=== PATIENT | male | born 1970 | race Caucasian/White ===

== ENCOUNTER 2017-10-15 21:10 | Emergency (ER) | payer OTHER ==
[2017-10-15 21:30] VITALS: BP 108/65; PULSE 85; TEMP 98.4; BMI 44.6
--- NOTE | 2017-10-15 21:32 | PDOC ---
Rapid Medical Evaluation Time Seen by Provider: 10/15/17 21:27 Medical Evaluation: 10/15/17 21:28 The patient presents with a chief complaint of: R leg pain after falling off of ladder. Slipped and fell from approximately 4 feet. Admits to hitting head. denies LOC. Now complaining of dizziness. Also states that he cannot bend his R leg without pain. Noticed swelling to the back. Took Tylenol 650 an hour ago. I have performed a brief in-person evaluation of this patient; Pertinent physical exam findings: ambulatory, in no respiratory distress. Swelling to posterior R leg; pain with flexion and extension I have ordered the following: CT head, femur/pelvis x-ray The patient will proceed to the ED for further evaluation. Discharge Disposition - Referrals Referrals: Bladimir Joyner MD [Primary Care Provider] - - Patient Instructions - Post Discharge Activity
[2017-10-15] MEDS ORDERED: KETOROLAC TROMETHAMINE 30 MG/1 ML VIAL IM ONE (23:05)
--- NOTE | 2017-10-15 23:28 | PDOC ---
History of Present Illness - General History Source: Patient Exam Limitations: No Limitations <Enrrique Fernando - Last Filed: 10/15/17 23:37> - General History Source: Patient Exam Limitations: No Limitations - History of Present Illness Initial Comments: 10/15/17 23:30 The patient is a 47 year old male, with a significant past medical history prostate inflammation is brought to the emergency department accompanied by his , s/p mechanical fall earlier this evening. The patient reports he was on a 4 ft ladder, when he lost his balance, fell back and tried to avoid landing on his back by using his right leg for support. Patient reports he was unsuccessful , leading to him landing on his back and injuring his right lower extremity. Patient reports associated lower back pain and right leg pain, worse with movement. The patient report taking two Tylenol and rubbing Bengay before coming to the ER, with minimal relief of symptoms. Patient endorses hitting his head and dizziness, but denies any LOC, changes in vision, headache, numbness, tingling, or neck pain. The patient reports right shoulder and finger pains, but states he is able to actively move them. He denies any other trauma. He denies any chest pain, shortness of breath, diaphoresis, palpitations, or lower extremity edema. Allergies: NKDA Past Surgical History: None reported Social History: Non smoker. No ETOH or recreational drug use. <Karen Fraire - Last Filed: 10/16/17 00:31> - General Chief Complaint: Injury Stated Complaint: FALL JOB INJURY Time Seen by Provider: 10/15/17 21:27 Past History - Suicide/Smoking/Psychosocial Hx Smoking History: Never smoked Have you smoked in the past 12 months: No Information on smoking cessation initiated: No Hx Alcohol Use: No Drug/Substance Use Hx: No <Enrrique Fernando - Last Filed: 10/15/17 23:37> <Karen Fraire - Last Filed: 10/16/17 00:31> - Past Medical History Allergies/Adverse Reactions: Allergies Allergy/AdvReac Type Severity Reaction Status Date / Time No Known Allergies Allergy Verified 10/15/17 21:30 Home Medications: Ambulatory Orders Allopurinol [Zyloprim -] 100 mg PO DAILY 10/15/17 Naproxen 500 mg PO BID PRN #20 tablet 10/15/17 Tamsulosin HCl [Flomax] 0.4 mg PO DAILY 10/15/17 Review of Systems - Review of Systems Able to Perform ROS?: Yes Comments:: 10/15/17 23:29 GENERAL/CONSTITUTIONAL: No fever or chills. No weakness. HEAD, EYES, EARS, NOSE AND THROAT: No change in vision. No ear pain or discharge. No sore throat. CARDIOVASCULAR: No chest pain or shortness of breath. RESPIRATORY: No cough, wheezing, or hemoptysis. GASTROINTESTINAL: No nausea, vomiting, diarrhea or constipation. GENITOURINARY: No dysuria, frequency, or change in urination. MUSCULOSKELETAL: +Lower back pain, +right leg pain. No neck pain. SKIN: No rash NEUROLOGIC: +Dizziness. No headache, loss of consciousness, or change in strength/sensation. ENDOCRINE: No increased thirst. No abnormal weight change. HEMATOLOGIC/LYMPHATIC: No anemia, easy bleeding, or history of blood clots. ALLERGIC/IMMUNOLOGIC: No hives or skin allergy. <Karen Fraire - Last Filed: 10/16/17 00:31> *Physical Exam - Vital Signs Last Vital Signs Temp Pulse Resp BP Pulse Ox 98.4 F 85 18 108/65 100 10/15/17 21:24 10/15/17 21:24 10/15/17 21:24 10/15/17 21:24 10/15/17 21:24 <Enrrique Fernando - Last Filed: 10/15/17 23:37> - Vital Signs Last Vital Signs Temp Pulse Resp BP Pulse Ox 98.4 F 85 18 108/65 100 10/15/17 21:24 10/15/17 21:24 10/15/17 21:24 10/15/17 21:24 10/15/17 21:24 - Physical Exam Comments: 10/15/17 23:30 GENERAL: Awake, alert, and fully oriented, in no acute distress HEAD: No signs of trauma EYES: PERRLA, EOMI, sclera anicteric, conjunctiva clear ENT: Auricles normal inspection, hearing grossly normal, nares patent, oropharynx clear without exudates. Moist mucosa NECK: Normal ROM, supple, no lymphadenopathy, JVD, or masses LUNGS: Breath sounds equal, clear to auscultation bilaterally. No wheezes, and no crackles HEART: Regular rate and rhythm, normal S1 and S2, no murmurs, rubs or gallops ABDOMEN: Soft, nontender, normoactive bowel sounds. No guarding, no rebound. No masses BACK: No cervical spine tenderness. No midline tenderness. EXTREMITIES: +Right proximal lateral thigh tenderness, but able to flex and extend the lateral hip. Full range of motion to the right shoulder, but no tenderness. Normal range of motion, no edema at the remainder of the extremities. No clubbing or cyanosis. No cords, erythema. VASCULAR: 2+ radial pulses. NEUROLOGICAL: Cranial nerves II through XII grossly intact. Normal speech. Sensation intact SKIN: Warm, Dry, normal turgor, no rashes or lesions noted. <Karen Fraire - Last Filed: 10/16/17 00:31> ED Treatment Course - RADIOLOGY Radiograph Interpretation: 10/16/17 00:30 EXAM: Head CT INTERPRETED BY: Dr. Caicedo REVIEWED BY: Dr. Fernando IMPRESSION: No acute intracranial hemorrhage, mass effect, hydrocephalus or calvarial fracture. EXAM: Right femur/hip XR INTERPRETED BY: Dr. Caicedo REVIEWED BY: Dr. Fernando IMPRESSION: There is a linear ossific fragment versus calcification just lateral to the base of the right greater trochanter, only seen on the AP view of the right hip, which could be an avulsion fracture or calcification within the gluteus tendon. Alignment is anatomic. Osseous mineralization is within normal. There is ossification along the course of bilateral iliolumbar ligaments. There is an. A 3 along bilateral iliac crests, bilateral anterior, superior iliac spines and at the insertions of the quadriceps and infrapatellar tendons. SUMMARY:Right greater trochanter avulsion fracture versus calcific tendinopathy of the right gluteus tendons. Please correlate clinically. <Karen Fraire - Last Filed: 10/16/17 00:31> Medical Decision Making - Medical Decision Making 10/15/17 23:22 A portion of this note was documented by scribe services under my direction. I have reviewed the details of the note, within reason, and agree with the documentation with the following case summary and management plan written by me. Patient treated in the ED. Nursing notes are reviewed and incorporated into the medical decision-making. Vital signs reviewed. Peripheral IV access obtained by the nurse, laboratory studies are drawn and sent, reviewed and interpreted by myself. Vital Signs Temp Pulse Resp BP Pulse Ox 98.4 F 85 18 108/65 100 10/15/17 21:24 10/15/17 21:24 10/15/17 21:24 10/15/17 21:24 10/15/17 21:24 47-year-old male with no past medical history presents with fall. The patient was in his home and up for stairs when he slipped and fell. Landed on his back complain by right proximal lateral thigh pain. He reports hitting his head but denies loss of consciousness. Reports feeling "days "but otherwise without other symptoms. Patient was given a discussion regards to risk factors for concussions. CAT scan head demonstrates no acute findings. No acute intracranial hemorrhage, mass effect or skull fractures. Radiographs of the right femur and hip demonstrates a right greater trochanter evaluation fracture versus calcific tendinopathy the right gluteus tendons. We'll consult ortho, give pain medications. Reassess. 10/15/17 23:37 Case discusse doretha Maher. he agrees with weight bearing and follow up as an outpatient. Pt is with and agrees with plan. I discussed the physical exam findings, ancillary test results and final diagnoses with the patient. I answered all of the patient's questions. The patient was satisfied with the care received and felt comfortable with the discharge plan and treatment plan. The patient will call their primary care physician within 24 hours to arrange follow-up and will return to the Emergency Department with any new, persistant or worsening symptoms. <Enrrique Fernando - Last Filed: 10/15/17 23:37> - Medical Decision Making 10/15/17 23:29 First call placed to Dr. Maher at 23:29. Awaiting call back. <Karen Fraire - Last Filed: 10/16/17 00:31> *DC/Admit/Observation/Transfer - Discharge Dispostion Admit: No <Enrrique Fernando - Last Filed: 10/15/17 23:37> - Attestations Scribe Attestion: 10/15/17 23:30 Documentation prepared by Karen Fraire, acting as medical practitioners for Enrrique Fernando MD. <Karen Fraire - Last Filed: 03/31/18 00:31> Diagnosis at time of Disposition: Fall Qualifiers: Encounter type: initial encounter Qualified Code(s): W19.XXXA - Unspecified fall, initial encounter Avulsion fracture of trochanter of right femur Qualifiers: Encounter type: initial encounter Fracture type: closed Qualified Code(s): S72.101A - Unspecified trochanteric fracture of right femur, initial encounter for closed fracture - Discharge Dispostion Disposition: HOME Condition at time of disposition: Improved - Prescriptions Prescriptions: Naproxen 500 mg PO BID PRN #20 tablet PRN Reason: Pain - Referrals Referrals: Bladimir Joyner MD [Primary Care Provider] - - Patient Instructions Printed Discharge Instructions: DI for Leg Pain Additional Instructions: Your head ct is unremarkable. Your leg radiograph shows a possible small right avulsion fracture of the greater trochanter. Please call the orthopedist on Wednesday and follow up. For pain control, take 500 mg naproxen every 12 hours as needed for pain. - Post Discharge Activity
[2017-10-16] MEDS ORDERED: KETOROLAC TROMETHAMINE 30 MG/1 ML VIAL ONE
== END 2017-10-16 00:10 | disposition home or self-care (01) ==
LOC: JERFT 21:10 → JER 21:10
PROC: 3E0233Z Introduction of Anti-inflammatory into Muscle, Percutaneous Approach (ICD-10-PCS; principal; 2017-10-15)
DX: S72.101A Unspecified trochanteric fracture of right femur, initial encounter for closed fracture (principal); W11.XXXA Fall on and from ladder, initial encounter; Y93.H3 Activity, building and construction; Y92.69 Other specified industrial and construction area as the place of occurrence of the external cause; Y99.0 Civilian activity done for income or pay
CPT/HCPCS: 70450-TC; 73502-TC-RT; 73552-TC-RT-FY; 96372; 99282-25

== ENCOUNTER 2019-04-17 09:11 | Emergency (ER) | payer OTHER ==
[2019-04-17 09:21] VITALS: BP 121/70; PULSE 77; TEMP 97.6; BMI 42.9
--- NOTE | 2019-04-17 09:32 | PDOC ---
History of Present Illness - General Chief Complaint: Back Pain Stated Complaint: NATALIIA NUMBNESS IN THE HANDS Time Seen by Provider: 04/17/19 09:32 History Source: Patient Exam Limitations: No Limitations - History of Present Illness Initial Comments: Pt is a 48 yo M, with PMH of BPH, who is presenting with complaints of b/l hand "numbness" down the radial side of his arms x3 days. Pt states the sensation woke him up from sleep, and that it is b/l, but worse in his left (dominant hand ). 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 Pt has never had this issue in the past. Pt denies any recent fevers/chills, headache, vision changes , syncope, chest pain, palpitations, SOB, nausea/vomiting, abdominal pain, incontinence of urine or stool, urinary symptoms, extremity pain, diarrhea/ constipation, or leg swelling. Allergies: NKDA PCP: Dr. Bladimir Joyner -- pt had labs down within 1 month and "everything was normal". Social: Pt denies any cigarette, alcohol, or drug use. Pt denies any recent travel or sick contacts. Surgical: no relevant history. Family: extensive history of DM in family. 04/17/19 12:22 Past History - Travel Traveled outside of the country in the last 30 days: No Close contact w/someone who was outside of country & ill: No - Past Medical History Allergies/Adverse Reactions: Allergies Allergy/AdvReac Type Severity Reaction Status Date / Time No Known Allergies Allergy Verified 04/17/19 09:21 Home Medications: Ambulatory Orders Allopurinol [Zyloprim -] 100 mg PO DAILY 10/15/17 Alfuzosin HCl [Alfuzosin HCl ER] 10 mg PO DAILY 04/17/19 Ibuprofen 800 mg PO BID #14 tablet 04/17/19 COPD: No - Immunization History Immunization Up to Date: Yes - Psycho Social/Smoking Cessation Hx Smoking History: Never smoked Have you smoked in the past 12 months: No Information on smoking cessation initiated: No Hx Alcohol Use: No Drug/Substance Use Hx: No Review of Systems - Review of Systems Able to Perform ROS?: Yes Is the patient limited Bangladeshi proficient: No Constitutional: Yes: Weight Stable. No: Chills, Diaphoresis, Fever, Loss of Appetite, Malaise, Weakness HEENTM: No: Recent change in vision, Nose Congestion, Throat Pain, Throat Swelling, Difficulty Swallowing Respiratory: No: Cough, Orthopnea, Shortness of Breath Cardiac (ROS): No: Chest Pain, Edema, Irregular Heart Rate, Lightheadedness, Palpitations, Syncope, Chest Tightness ABD/GI: No: Constipated, Diarrhea, Nausea, Poor Appetite, Poor Fluid Intake, Vomiting : No: Burning, Dysuria, Flank Pain, Incontinence, Pain, Urgency Musculoskeletal: No: Back Pain, Joint Pain, Joint Swelling, Muscle Pain, Muscle Weakness, Neck Pain, Joint Stiffness Integumentary: No: Erythema, Rash Neurological: Yes: See HPI, Numbness, Paresthesia, Tingling. No: Headache, Pre- Existing Deficit, Weakness, Unsteady Gait, Ataxia, Dizziness Psychiatric: No: Sleep Pattern Change, Change in Appetite Endocrine: No: Increased Urine, Change in Weight Hematologic/Lymphatic: No: Anemia, Blood Clots, Easy Bleeding, Easy Bruising All Other Systems: Reviewed and Negative *Physical Exam - Vital Signs Last Vital Signs Temp Pulse Resp BP Pulse Ox 97.6 F 77 18 121/70 96 04/17/19 09:17 04/17/19 09:17 04/17/19 09:17 04/17/19 09:17 04/17/19 09:17 - Physical Exam Comments: Vitals stable, pt afebrile. Pt in NAD, morbidly obese body habitus. Pt alert and oriented x3. service line coordinator generally intact, muscular strength and sensation intact in all extremities. Intact triceps and biceps reflexes b/l. Reflex exam reproduced the tingling sensation in the hands. No midline spinal tenderness, step-offs, or crepitus. Head normocephalic, atraumatic. Eyes PERRLA, EOMI. Oropharynx without erythema or exudates, no LAD b/l. No nasal congestion. Hearing intact. Clear heart sounds, S1/S2, no JVD, b/l pedal edema, or heart murmur. Clear lung sounds, no respiratory distress, wheezes, crackles, or accessory muscle use. No abdominal or CVA tenderness to palpation, no rebound, no guarding. Abdomen soft, non-distended, and with normoactive bowel sounds. Skin without jaundice or rash. 04/17/19 12:26 ED Treatment Course - LABORATORY CBC & Chemistry Diagram: 04/17/19 10:20 Medical Decision Making - Medical Decision Making Pt was seen at bedside, also will be seen by attending Dr. Zuñiga. Pt presenting with b/l hand numbness/tingling, likely from over-use. Sensation was reproduced with reflex examination. No FNDs noted on exam, no warning signs (no weakness, incontinence, fevers/chills) to suggest need for CT to evaluate for compression. Will evaluate with labs to check electrolytes, cardiac profile, and ECG. Will get fingerstick BGM (pt was fasting) to evaluate for DM. Pt declined pain control at this time. Will continue to reassess pt and monitor for symptomatic improvement. ECG: NSR, intervals WNL (HR 64, WA 152, QRS 86, QTc 425). No TWIs or significant ST segment changes. No prior ECG for comparison. 04/17/19 12:27 CMP WNL BGM in 80s Trop <.02 with no EKG changes Pt can be discharged to home with PCP f/u. Provided 800 mg PO ibuprofen to pts pharmacy for anti-inflammatory effect. Likely over-use injury. Provided work- note and referral to orthopedics. Strict return precautions provided, including for compression symptoms. 04/17/19 12:32 Discharge - Discharge Information Problems reviewed: Yes Clinical Impression/Diagnosis: Numbness and tingling in both hands Condition: Good Disposition: HOME - Admission No - Additional Discharge Information Prescriptions: Ibuprofen 800 mg PO BID #14 tablet - Follow up/Referral Referrals: Bladimir Joyner MD [Primary Care Provider] - Gabe Higginbotham DO [Staff Physician] - - Patient Discharge Instructions Patient Printed Discharge Instructions: DI for Cervical Radiculopathy, DI for Numbness/tingling Additional Instructions: You were seen in the ER today for numbness in your hands and arms. The results of your labs today were normal. Please follow-up with your primary care doctor and orthopedics within 1-2 days to discuss your visit and make sure your symptoms have improved. Please return to the ER if you have any worsening pain, development of fevers or chills, loss of consciousness, weakness in your extremities, incontinence of urine or stool, inability to tolerate food or fluids, or any other concerns. I have sent medications to your pharmacy. Please take these medications as prescribed. You can use ice or warm compress at home for pain in your neck or shoulders. Please attempt to refrain from heavy lifting or straining at work until you are feeling better. - Post Discharge Activity Work/Back to School Note: Back to Work
--- NOTE | 2019-04-17 10:38 | PDOC ---
History of Present Illness - General Chief Complaint: Back Pain Stated Complaint: NATALIIA NUMBNESS IN THE HANDS Time Seen by Provider: 04/17/19 09:32 Past History - Past Medical History Allergies/Adverse Reactions: Allergies Allergy/AdvReac Type Severity Reaction Status Date / Time No Known Allergies Allergy Verified 04/17/19 09:21 Home Medications: Ambulatory Orders Allopurinol [Zyloprim -] 100 mg PO DAILY 10/15/17 Alfuzosin HCl [Alfuzosin HCl ER] 10 mg PO DAILY 04/17/19 COPD: No - Immunization History Immunization Up to Date: Yes - Psycho Social/Smoking Cessation Hx Smoking History: Never smoked Have you smoked in the past 12 months: No Information on smoking cessation initiated: No Hx Alcohol Use: No Drug/Substance Use Hx: No *Physical Exam - Vital Signs Last Vital Signs Temp Pulse Resp BP Pulse Ox 97.6 F 77 18 121/70 96 04/17/19 09:17 04/17/19 09:17 04/17/19 09:17 04/17/19 09:17 04/17/19 09:17 ED Treatment Course - LABORATORY CBC & Chemistry Diagram: 04/17/19 10:20 - ADDITIONAL ORDERS Additional order review: Laboratory Results 04/17/19 10:14 POC Glucometer 87 04/17/19 10:14 POC Glucometer 87 Discharge - Follow up/Referral Referrals: Bladimir Joyner MD [Primary Care Provider] - - Patient Discharge Instructions - Post Discharge Activity
--- NOTE | 2019-04-17 10:40 | PDOC ---
Attending Attestation - Resident Resident Name: AdelsoMavis - ED Attending Attestation I have performed the following: I have examined & evaluated the patient, The case was reviewed & discussed with the resident, I agree w/resident's findings & plan, Exceptions are as noted - HPI HPI: 04/17/19 18:03 48 yo M, with PMH of BPH, who is presenting with complaints of b/l hand "numbness" down the radial side of his arms x3 days. - Physicial Exam PE: 04/17/19 18:03 Vitals: Triage Vital signs reviewed General Appearance: no acute distress, well nourished well developed, Head: Atraumatic, Neck: Supple;No Nucal rigidity Chest Wall: Nontender Cardiac: Regular rate and rhythym, no murmurs, no rubs, no gallops, Lungs: Clear to auscultation bilateral, good air movement bilaterally, Abdomen: Soft, non distended, normal bowel sounds, non tender to palpation Extremities: Full range of motion to all extremities, no cyanosis, clubbing, or edema Skin: Warm and dry, no rashes or lesions, no rash, no petechiae Neuro: AOX3; Cranial Nerves 2-12 grossly intact, Strength intact to all extremities, Sensation intact to all extremities,gait normal Psych: normal mood, normal affect - Medical Decision Making 04/17/19 18:06 Hearing no apparent distress no cardiac risk factors presents with paresthesias to bilateral hands likely secondary to overuse. EKG demonstrates normal sinus rhythm with no ST elevations no T-wave inversions. Interpreted by me troponin is negative likely radiculopathy secondary to overuse recommend NSAIDs orthopedic follow-up Findings, the need for follow-up and strict return instructions discussed with patient.
[2019-04-17 11:00] LABS: ALBUMIN 3.6 g/dl (3.4-5.0); BILIRUBIN,TOTAL 0.6 mg/dL (0.2-1); BLOOD UREA NITROGEN 13.6 mg/dL (7-18); CALCIUM 9.2 mg/dL (8.5-10.1); CREATININE 0.7 mg/dL (0.55-1.3); POTASSIUM 4.1 mmol/L (3.5-5.1); TOT PROT 6.5 g/dl (6.4-8.2)
--- NOTE | 2019-04-18 10:13 | EKG ---
Test Reason : Blood Pressure : / mmHG Vent. Rate : 064 BPM Atrial Rate : 064 BPM P-R Int : 152 ms QRS Dur : 086 ms QT Int : 412 ms P-R-T Axes : 014 050 024 degrees QTc Int : 425 ms NORMAL SINUS RHYTHM WITH SINUS ARRHYTHMIA NORMAL ECG NO PREVIOUS ECGS AVAILABLE Confirmed by Angel Jolley MD ([id number]) on 04/18/2019 10:13:18 AM Referred By: Confirmed By:Angel Jolley MD
== END 2019-04-17 11:30 | disposition home or self-care (01) ==
LOC: JER 09:11
DX: R20.0 Anesthesia of skin (principal); M70.842 Other soft tissue disorders related to use, overuse and pressure, left hand; M70.841 Other soft tissue disorders related to use, overuse and pressure, right hand; Y93.89 Activity, other specified
CPT/HCPCS: 36415; 80053; 82962; 84484; 93005; 93010; 99282-25

== ENCOUNTER 2021-09-23 14:24 | Emergency (ER) | payer BC, OTHER ==
[2021-09-23 14:49] VITALS: BMI 39.4
[2021-09-23 16:29] VITALS: BP 109/77; PULSE 90; TEMP 97.8
== END 2021-09-23 17:04 | disposition home or self-care (01) ==
LOC: JERFT 14:24
PROC: 0HQ0XZZ Repair Scalp Skin, External Approach (ICD-10-PCS; principal; 2021-09-23)
DX: S01.01XA Laceration without foreign body of scalp, initial encounter (principal); W26.8XXA Contact with other sharp object(s), not elsewhere classified, initial encounter
CPT/HCPCS: 99282-25

== ENCOUNTER 2021-10-01 09:46 | Emergency (ER) | payer BC ==
[2021-10-01 10:15] VITALS: BP 112/73; PULSE 77; TEMP 98.2; BMI 39.4
== END 2021-10-01 11:11 | disposition home or self-care (01) ==
LOC: JERFT 09:46
DX: Z48.02 Encounter for removal of sutures (principal)
CPT/HCPCS: 99281-25

== ENCOUNTER 2023-04-19 04:08 | Day surgery (SDC) | payer BC ==
[2023-04-15 12:25] VITALS: BMI 39.4
[2023-04-19 10:52] VITALS: RESP 18
[2023-04-19] MEDS ORDERED: MIDAZOLAM HCL 2 MG/2 ML SINGLE DOSE VIAL ONE (12:55)
[2023-04-19 13:41] VITALS: PULSE 78
[2023-04-19 14:32] VITALS: BP 111/69; TEMP 97.9
== END 2023-04-19 14:32 | disposition home or self-care (01) ==
LOC: JASU-SURG 04:08
PROVIDERS: ATTEND Urology
PROC: 0TF3XZZ Fragmentation in Right Kidney Pelvis, External Approach (ICD-10-PCS; principal; 2023-04-19 13:00)
DX: N20.0 Calculus of kidney (principal)

== ENCOUNTER 2023-04-21 15:51 | Emergency (ER) | payer BC ==
[2023-04-21 16:04] VITALS: BP 111/71; PULSE 94; RESP 18; TEMP 98.2; BMI 39.4
[2023-04-21] MEDS ORDERED: ACETAMINOPHEN 500 MG TABLET (FP) PO ONE (17:24)
[2023-04-21] MEDS ORDERED: DIPHTH,PERTUSS(ACELL),TET 0.5 ML DISP.SYRIN IM ONE ×3 (17:24→17:38)
[2023-04-21] MEDS ORDERED: ACETAMINOPHEN 500 MG TABLET (FP) ONE (17:29)
== END 2023-04-21 18:10 | disposition home or self-care (01) ==
LOC: JERFT 15:51
PROC: 0HQGXZZ Repair Left Hand Skin, External Approach (ICD-10-PCS; principal; 2023-04-21)
PROC: 3E0234Z Introduction of Serum, Toxoid and Vaccine into Muscle, Percutaneous Approach (ICD-10-PCS; 2023-04-21)
DX: S61.412A Laceration without foreign body of left hand, initial encounter (principal); W29.8XXA Contact with other powered hand tools and household machinery, initial encounter; Y92.009 Unspecified place in unspecified non-institutional (private) residence as the place of occurrence of the external cause
CPT/HCPCS: 90715; 99283-25

== ENCOUNTER 2024-01-10 14:44 | Inpatient (IN) | payer BC ==
[2024-01-10 15:58] LABS: BASO % 0.7 % (0-2.0); HEMATOCRIT 40.8 % (35.4-49); MCH 29.6 pg (25.7-33.7); MCHC 34.3 g/dl (32.0-35.9); MEAN CELL VOLUME 86.3 fl (80-96); MEAN PLT VOLUME 7.4 fl (7.5-11.1); MONO % 8.7 % (3.8-10.2); NEUT % 57.6 % (42.8-82.8); PLATELET COUNT 224 10^3/uL (134-434); RBC 4.73 M/mm3 (4.00-5.60); RDW 14.2 % (11.9-15.9); WHITE BLOOD COUNT 7.4 K/mm3 (4.0-10.0)
[2024-01-10 16:12] LABS: INR 1.09 (0.83-1.09); PROTHROMBIN TIME (PATIENT) 12.3 SEC (9.7-13.0)
[2024-01-10 16:15] LABS: ACTIVATED PTT 30.8 SECONDS (25.2-36.5)
[2024-01-10 16:19] LABS: CHLORIDE 113 mmol/L (98-107); POTASSIUM 3.8 mmol/L (3.5-5.1); SODIUM 144 mmol/L (136-145)
[2024-01-10 16:21] LABS: ALBUMIN 3.5 g/dl (3.4-5.0); ANION GAP 5 mmol/L (4-13); CALCIUM 8.7 mg/dL (8.5-10.1); CO2 26 mmol/L (21-32)
[2024-01-10 16:22] LABS: GLUCOSE,RANDOM 94 mg/dL (74-106)
[2024-01-10 16:24] LABS: SGPT/ALT 27 U/L (13-61)
[2024-01-10 16:25] LABS: CREATININE 0.7 mg/dL (0.55-1.3); SGOT/AST 12 U/L (15-37)
[2024-01-10 16:26] LABS: CHOLESTEROL 138 mg/dL (50-200); TOT PROT 6.7 g/dl (6.4-8.2)
[2024-01-10 16:27] LABS: BILIRUBIN,TOTAL 0.7 mg/dL (0.2-1); LDL CHOLESTEROL (ONLY SJRH) 94 mg/dL (5-100)
[2024-01-10 16:28] LABS: ALK PHOS 88 U/L (45-117)
[2024-01-10 16:29] LABS: HDL CHOLESTEROL 33 mg/dL (40-60)
[2024-01-10 18:16] LABS: BF GLUCOSE (CSF ONLY) 60 mg/dL (40-70)
[2024-01-10] MEDS ORDERED: ACETAMINOPHEN INJECTION 100 ML IVPB ONE (18:53)
[2024-01-10] MEDS: SODIUM CHLORIDE 0.9% 500 ML INFUS.BAG IV ONE (18:53)
[2024-01-10] MEDS: ACETAMINOPHEN 1000 MG/100 ML BAG IVPB ONE (18:53)
[2024-01-10 19:35] LABS: CSF APPEARANCE CLEAR (CLEAR); CSF COLOR COLORLESS (COLORLESS)
[2024-01-10 19:38] LABS: CSF WBC 76 mm3 (0-5)
[2024-01-10] MEDS ORDERED: DOCUSATE SODIUM 100 MG CAPSULE (FP) PO PRN (19:59)
[2024-01-10] MEDS ORDERED: ACYCLOVIR 1000 MG (50MG/ML) VIAL IVPB SCH (22:15)
[2024-01-10] MEDS ORDERED: METOCLOPRAMIDE HCL INJECTION 10 MG/2 ML VIAL ONE (22:48)
[2024-01-10] MEDS: METOCLOPRAMIDE HCL INJECTION 10 MG/2 ML VIAL IVPUSH ONE (23:07)
[2024-01-10] MEDS: CEFTRIAXONE 500 MG in DEXTROSE 5%-WATER - 50 ML IVPB ONE (23:16)
[2024-01-11] MEDS ORDERED: ACETAMINOPHEN 1000 MG/100 ML BAG IVPB PRN (01:00)
[2024-01-11] MEDS ORDERED: cefTRIAXone SODIUM 1 GM VIAL ONE (03:32)
[2024-01-11] MEDS ORDERED: CEFTRIAXONE 1 GM/50 ML BAG ONE (03:32)
[2024-01-11] MEDS: CEFTRIAXONE 1 GM in DEXTROSE 5%-WATER - 50 ML IVPB ONE (04:10)
[2024-01-11] MEDS: CEFTRIAXONE 500 MG in DEXTROSE 5%-WATER - 50 ML IVPB ONE (05:15)
[2024-01-11] MEDS: SODIUM CHLORIDE 0.45% 1,000 ML IV SCH (06:41)
[2024-01-11 07:00] VITALS: RESP 18
[2024-01-11 07:21] LABS: BASO % 0.6 % (0-2.0); EOS % 2.6 % (0-4.5); HEMATOCRIT 38.9 % (35.4-49); LYMPH % 31.2 % (8-40); MCH 28.8 pg (25.7-33.7); MCHC 33.3 g/dl (32.0-35.9); MEAN CELL VOLUME 86.3 fl (80-96); MEAN PLT VOLUME 7.8 fl (7.5-11.1); MONO % 8.6 % (3.8-10.2); PLATELET COUNT 202 10^3/uL (134-434); RBC 4.51 M/mm3 (4.00-5.60); RDW 14.1 % (11.9-15.9); WHITE BLOOD COUNT 5.5 K/mm3 (4.0-10.0)
[2024-01-11 07:37] LABS: POTASSIUM 3.8 mmol/L (3.5-5.1)
[2024-01-11 07:39] LABS: BLOOD UREA NITROGEN 10.5 mg/dL (7-18); CALCIUM 8.1 mg/dL (8.5-10.1)
[2024-01-11 07:43] LABS: CREATININE 0.6 mg/dL (0.55-1.3)
[2024-01-11] MEDS: ACETAMINOPHEN 1000 MG/100 ML BAG IVPB PRN (09:29)
[2024-01-11] MEDS ORDERED: CEFTRIAXONE 2 GM in DEXTROSE 5%-WATER 100 ML IVPB SCH (18:00)
[2024-01-11] MEDS: CEFTRIAXONE 2 GM in DEXTROSE 5%-WATER 100 ML IVPB SCH (21:17)
[2024-01-11] MEDS: ALLOPURINOL 100 MG TABLET (FP) PO SCH (21:17)
[2024-01-11 22:30] LABS: HIV INTERPRETATION NEGATIVE (NEGATIVE)
[2024-01-12] MEDS ORDERED: ACETAMINOPHEN 325 MG TABLET (FP) PO PRN (01:00)
[2024-01-12 07:22] LABS: BASO % 0.5 % (0-2.0); EOS % 3.8 % (0-4.5); HEMATOCRIT 40.6 % (35.4-49); HEMOGLOBIN 13.8 GM/dL (11.7-16.9); LYMPH % 36.4 % (8-40); MCH 29.3 pg (25.7-33.7); MCHC 33.8 g/dl (32.0-35.9); MEAN CELL VOLUME 86.5 fl (80-96); MEAN PLT VOLUME 8.3 fl (7.5-11.1); MONO % 7.1 % (3.8-10.2); NEUT % 52.2 % (42.8-82.8); PLATELET COUNT 206 10^3/uL (134-434); RDW 14.2 % (11.9-15.9); WHITE BLOOD COUNT 4.8 K/mm3 (4.0-10.0)
[2024-01-12 07:48] LABS: POTASSIUM 4.4 mmol/L (3.5-5.1)
[2024-01-12 07:51] LABS: ALBUMIN 3.4 g/dl (3.4-5.0); BLOOD UREA NITROGEN 7.8 mg/dL (7-18)
[2024-01-12 07:54] LABS: CREATININE 0.7 mg/dL (0.55-1.3)
[2024-01-12 07:56] LABS: BILIRUBIN,TOTAL 0.6 mg/dL (0.2-1); TOT PROT 6.3 g/dl (6.4-8.2)
[2024-01-12] MEDS: TAMSULOSIN HCL 0.4 MG CAP PO SCH (10:13)
[2024-01-12] MEDS: ACETAMINOPHEN 325 MG TABLET (FP) PO PRN (14:36)
[2024-01-12] MEDS ORDERED: DOCUSATE SODIUM 100 MG CAPSULE (FP) PO PRN (22:54)
[2024-01-12] MEDS: SODIUM CHLORIDE 0.45% 1,000 ML IV SCH (23:00)
[2024-01-13] MEDS: TAMSULOSIN HCL 0.4 MG CAP PO SCH (09:57)
[2024-01-13] MEDS: ACETAMINOPHEN 325 MG TABLET (FP) PO PRN (13:37)
[2024-01-13] MEDS: CEFTRIAXONE 2 GM in DEXTROSE 5%-WATER 100 ML IVPB SCH (20:51)
[2024-01-13] MEDS: ALLOPURINOL 100 MG TABLET (FP) PO SCH (21:15)
[2024-01-14 14:08] LABS: WEST NILE VIRUS AB SERUM,IGM Negative (Negative)
[2024-01-14 23:58] VITALS: BMI 40.6
[2024-01-15 12:16] VITALS: BP 109/83; PULSE 77; TEMP 97.9
[2024-01-15 15:07] LABS: LYME PCR CSF Negative (Negative)
== END 2024-01-15 14:43 | disposition home or self-care (01) | DRG 76 ==
LOC: JER 14:44 → JERBED 19:12 → OBSVTOIN 01-11 08:14 → J4S 01-11 08:23 → J6S 01-12 22:53
PROVIDERS: ADMIT Internal Medicine; ATTEND Internal Medicine
PROC: 00JU3ZZ Inspection of Spinal Canal, Percutaneous Approach (ICD-10-PCS; principal; 2024-01-10)
DX: A87.9 Viral meningitis, unspecified (principal); G43.901 Migraine, unspecified, not intractable, with status migrainosus; R29.810 Facial weakness; N40.0 Benign prostatic hyperplasia without lower urinary tract symptoms
CPT/HCPCS: 36415; 70450-TC; 70553-TC; 71046-TC-FY; 80048; 80053; 80061; 82550; 82945; 82962; 83036; 84157; 84166; 84484; 85025; 85610; 85730; 86592; 86617; 86618; 86780; 86788; 86789; 86850; 86900; 86901; 87070; 87205; 87389; 87476; 87529; 87536; 87899; 93005; 93010; 93306-TC; 93880-TC; 99285-25; G0378; J0131